=== PATIENT | male | born 1990 | race African-American/Black ===

== ENCOUNTER 2017-08-15 11:37 | Emergency (ER) | payer SELFPAY ==
[~2017-08-15] VITALS: Ht 170.2 cm; Wt 68.2 kg
[2017-08-15] MEDS ORDERED: KETOROLAC TROMETHAMINE 10 MG TABLET PO ONE (12:15)
[2017-08-15 12:30] VITALS: BP 125/78
== END 2017-08-15 12:35 | disposition home or self-care (01) ==
LOC: EMS 11:38
DX: S00.83XA Contusion of other part of head, initial encounter (principal); V49.69XA Unspecified car occupant injured in collision with other motor vehicles in traffic accident, initial encounter; Y93.89 Activity, other specified; Y92.89 Other specified places as the place of occurrence of the external cause; Y99.8 Other external cause status
CPT/HCPCS: 99282

== ENCOUNTER 2018-07-13 09:24 | Emergency (ER) | payer SELFPAY ==
[~2018-07-13] VITALS: Ht 170.2 cm; Wt 69.1 kg
[2018-07-13] MEDS ORDERED: OxyCODONE HCL/ACETAMINOPHEN 5-325 MG TABLET PO ONE (10:00)
[2018-07-13] MEDS ORDERED: MUPIROCIN CALCIUM 2% 22 GM OINTMENT TP ONE (10:00)
[2018-07-13 10:36] VITALS: BP 130/73
== END 2018-07-13 10:37 | disposition home or self-care (01) ==
LOC: EMS 09:25
DX: L02.411 Cutaneous abscess of right axilla (principal); F12.10 Cannabis abuse, uncomplicated

== ENCOUNTER 2020-02-08 17:24 | Emergency (ER) | payer SELFPAY ==
[~2020-02-08] VITALS: Ht 172.7 cm; Wt 69.1 kg
[2020-02-08 17:28] VITALS: BP 102/61
== END 2020-02-08 18:00 | disposition left against medical advice (07) ==
LOC: EMS 17:24
DX: M25.572 Pain in left ankle and joints of left foot (principal); Z53.21 Procedure and treatment not carried out due to patient leaving prior to being seen by health care provider